=== PATIENT | male | born 1995 | race Caucasian/White ===

== ENCOUNTER 2023-11-12 18:58 | Emergency (ER) | payer BC, OTHER ==
[2023-11-12 19:10] VITALS: BP 168/87; PULSE 108
== END 2023-11-12 19:25 ==
LOC: FB.ED 18:58
DX: I10 Essential (primary) hypertension (principal); Z88.1 Allergy status to other antibiotic agents
CPT/HCPCS: 99283

== ENCOUNTER 2024-01-02 20:41 | Emergency (ER) | payer SELFPAY ==
[2024-01-02 20:57] VITALS: BP 133/82; PULSE 112
[2024-01-02] MEDS: traZODone 50 MG Tab PO ONE (21:30)
[2024-01-02] MEDS: traZODone 50 MG Tab PO STA (21:32)
[2024-01-03] MEDS ORDERED: traZODone 100 MG Tab PO SCH (21:00)
== END 2024-01-02 21:36 | disposition home or self-care (01) ==
LOC: FB.ED 20:41
DX: G47.00 Insomnia, unspecified (principal); F20.9 Schizophrenia, unspecified; F17.210 Nicotine dependence, cigarettes, uncomplicated; Z79.899 Other long term (current) drug therapy; Z88.1 Allergy status to other antibiotic agents; Z88.8 Allergy status to other drugs, medicaments and biological substances
CPT/HCPCS: 99283; A9270

== ENCOUNTER 2024-03-16 20:42 | Emergency (ER) | payer SELFPAY ==
[2024-03-16] MEDS ORDERED: Ibuprofen 800 MG Tab PO ONE (20:43)
[2024-03-16 21:24] LABS: BLOOD UREA NITROGEN,BUN 13 mg/dL (7-18); CALCIUM 8.8 mg/dL (8.6-10.2); CARBON DIOXIDE,CO2 27 mmol/L (21-32); CHLORIDE,CL 107 mmol/L (100-110); ESTIMATED GFR 104 mL/min (>60); GLUCOSE RANDOM 95 mg/dL (80-116); POTASSIUM,K 3.7 mmol/L (3.5-5.3); SODIUM,NA 141 mmol/L (135-145)
[2024-03-16 21:25] LABS: BASOPHILS ABSOLUTE AUTO 0.1 x10-3/uL (0.0-0.3); BASOPHILS PERCENT AUTO 0.9 % (0.3-3.8); EOSINOPHILS ABSOLUTE AUTO 0.9 x10-3/uL (0.0-0.6); EOSINOPHILS PERCENT AUTO 12.8 % (0.1-6.8); HEMATOCRIT 40.7 % (38.3-50.1); LYMPHOCYTES ABSOLUTE AUTO 2.3 x10-3/uL (0.5-4.5); LYMPHOCYTES PERCENT AUTO 31.9 % (15.8-45.3); MEAN CORPUSCULAR HEMOGLOBIN 31.3 pg (27.0-33.3); MEAN CORPUSCULAR HGB CONC 34.4 g/dL (28.7-35.3); MEAN CORPUSCULAR VOLUME 90.9 fL (80.8-98.7); MEAN PLATELET VOLUME 7.5 fL (6.7-11.0); MONOCYTES ABSOLUTE AUTO 0.6 x10-3/uL (0.0-1.2); MONOCYTES PERCENT AUTO 8.3 % (5.5-15.2); NEUTROPHILS ABSOLUTE AUTO 3.3 x10-3/uL (1.7-6.9); NEUTROPHILS PERCENT AUTO 46.1 % (40.3-71.8); PLATELET COUNT,PLT 237 x10(3)uL (117-477); RED BLOOD CELL COUNT 4.48 x10(6)uL (3.90-5.90); RED CELL DISTRIBUTION WIDTH 12.9 % (12.4-15.0); WHITE BLOOD CELL COUNT,WBC 7.1 x10-3/uL (3.2-10.1)
[2024-03-16 21:30] LABS: A/G RATIO 1.4; ALANINE AMINOTRANSFERASE,ALT 24 U/L (12-36); ALBUMIN 3.7 g/dL (3.5-5.2); ALKALINE PHOSPHATASE 61 IU/L (56-112); ASPARTATE AMNIOTRANSFERASE,AST 17 IU/L (5-25); BILIRUBIN TOTAL 0.4 mg/dL (0.1-1.3); PROTEIN TOTAL,TP 6.3 g/dL (6.0-8.0)
[2024-03-16 22:02] VITALS: BP 121/76; PULSE 74
== END 2024-03-16 22:02 | disposition home or self-care (01) ==
LOC: FB.ED 20:42
DX: I30.9 Acute pericarditis, unspecified (principal); R42 Dizziness and giddiness; R06.02 Shortness of breath; Z88.8 Allergy status to other drugs, medicaments and biological substances; Z79.899 Other long term (current) drug therapy; Z90.49 Acquired absence of other specified parts of digestive tract
CPT/HCPCS: 36415; 71046; 80053; 83880; 84443; 84484; 85025; 85651; 86140; 93005; 93010; 99284; 99285; A9270